=== PATIENT | male | born 1995 | race Caucasian/White ===

== ENCOUNTER 2019-06-29 23:13 | Emergency (ER) | payer OTHER ==
[~2019-06-29] VITALS: Ht 172.7 cm; Wt 108.2 kg
[2019-06-30] MEDS ORDERED: SEPTRA DS 8001 TAB PO (00:01)
[2019-06-30 00:45] VITALS: BP 130/78
== END 2019-06-30 00:45 | disposition home or self-care (01) ==
LOC: ED 23:13
DX: L30.9 Dermatitis, unspecified (principal); Z23 Encounter for immunization
CPT/HCPCS: 90715